=== PATIENT | male | born 1950 | race Caucasian/White ===

== ENCOUNTER → 2017-04-12 | Outpatient (CLI) | payer MEDICARE, MEDICAID ==
[~2017-04-12] MED LIST: ASPI-621 PO; CLON0.1T PO; FINA5TAB4 PO; HYDR-3237 PO; LISI40TA PO; MELA5TAB19 PO; METF500T4 PO; TAMS-11 PO; ZOLP10TA5 PO; vitamin b12 PO
[2017-04-12 11:55] LABS: EPI LOT# 5695218
[2017-04-12 12:04] LABS: HEMATOCRIT 49.2 % (39.2-51.8); HEMOGLOBIN 16.8 g/dL (13.7-18.0); WHITE BLOOD COUNT 6.6 x10^3/uL (3.4-10)
[2017-04-12 12:06] LABS: HCT (PFA) 49.3 % (39.2-51.8); PLATELET (PFA) 125 x10^3/uL (130-400)
[2017-04-12 12:13] LABS: BLOOD UREA NITROGEN 11 mg/dL (7-18)
[2017-04-12 12:16] LABS: ASPARTATE AMINO TRANSFERASE 12 U/L (15-37)
[2017-04-12 13:14] LABS: EPI CARTRIDGE 103 SECONDS (72-193)
== END | disposition home or self-care (01) ==
LOC: STAR 10:38
PROVIDERS: ATTEND Neurological Surgery
DX: Z01.818 Encounter for other preprocedural examination (principal); R94.31 Abnormal electrocardiogram [ECG] [EKG]; G91.2 (Idiopathic) normal pressure hydrocephalus
CPT/HCPCS: 36415; 71020; 80053; 81003; 85014; 85025; 85049; 85576; 85610; 85730; 93005

== ENCOUNTER 2017-04-26 05:38 | Inpatient (IN) | payer MEDICARE, MEDICAID ==
[~2017-04-26] VITALS: Ht 188 cm; Wt 94.0 kg
[2017-04-26] MEDS ORDERED: LACTATED RINGERS 1,000 ML IV SCH (06:03)
[2017-04-26] MEDS ORDERED: BUPIVACAINE/PF 0.5% ONE (06:47)
[2017-04-26] MEDS ORDERED: THROMBIN 5,000 UNIT VIAL TP ONE (06:48)
[2017-04-26] MEDS ORDERED: BACITRACIN 50,000 UNIT ONE (06:48)
[2017-04-26] MEDS ORDERED: BACITRACIN OINT 500U/GM, 15 GM ONE (06:48)
[2017-04-26] MEDS ORDERED: EPINEPHRINE 1 MG/ML, 1ML ONE (06:48)
[2017-04-26] MEDS ORDERED: MIDAZOLAM 1 MG/ML, 2ML ONE (07:03)
[2017-04-26] MEDS ORDERED: FENTANYL PF 250 MCG/5ML ONE ×2 (07:05→08:39)
[2017-04-26] MEDS ORDERED: LABETALOL 5MG/ML, 20ML ONE (07:30)
[2017-04-26] MEDS ORDERED: ESMOLOL 100 MG/10 ML ONE (07:30)
[2017-04-26] MEDS ORDERED: HYDROmorphone 1 MG/ML, 1ML IV PRN (08:30)
[2017-04-26] MEDS ORDERED: HALOPERIDOL 5 MG/ML IV ONE (08:30)
[2017-04-26] MEDS ORDERED: OXYcodone 5 MG/5 ML ORAL.SOL UDC PO PRN (08:30)
[2017-04-26] MEDS ORDERED: FENTANYL PF 100 MCG/2ML IV PRN (08:30)
[2017-04-26] MEDS ORDERED: PROMETHAZINE 25 MG/ML, 1ML IV PRN (08:30)
[2017-04-26] MEDS ORDERED: ALBUTEROL SULFATE 2.5 MG/3 ML NPPB PRN (08:30)
[2017-04-26] MEDS ORDERED: ACETAMINOPHEN 325 MG TABLET PO PRN ×2 (08:30→12:30)
[2017-04-26] MEDS ORDERED: METOPROLOL 1 MG/ML, 5ML IV PRN (08:30)
[2017-04-26] MEDS ORDERED: NITROGLYCERIN 5 MG/ML, 10ML ONE (08:47)
[2017-04-26] MEDS ORDERED: PROPOFOL 10 MG/ML, 20ML ONE ×2 (10:02)
[2017-04-26] MEDS ORDERED: ROCURONIUM 10 MG/ML,10ML ONE (10:02)
[2017-04-26] MEDS ORDERED: DEXAMETHASONE 4 MG/ML, 1ML ONE (10:02)
[2017-04-26] MEDS ORDERED: NEOSTIGMINE 1 MG/ML, 10ML ONE (10:02)
[2017-04-26] MEDS ORDERED: GLYCOPYRROLATE 0.2MG/1ML, 5ML ONE (10:02)
[2017-04-26] MEDS ORDERED: CEFAZOLIN 1,000 MG ONE (10:02)
[2017-04-26] MEDS ORDERED: SUCCINYLCHOLINE 20 MG/ML, 10ML ONE (10:02)
[2017-04-26] MEDS ORDERED: ONDANSETRON 2MG/ML, 2ML ONE (10:02)
[2017-04-26] MEDS ORDERED: FENTANYL PF 100 MCG/2ML ONE (10:36)
[2017-04-26] MEDS ORDERED: OXYcodone 5 MG/5 ML ORAL.SOL UDC ONE (10:36)
[2017-04-26] MEDS ORDERED: hydrALAzine 20 MG/ML, 1ML ONE (10:45)
[2017-04-26] MEDS: hydrALAzine 20 MG/ML, 1ML IV PRN ×2 (11:00→11:18)
[2017-04-26] MEDS ORDERED: MAGNESIUM HYDROXIDE 8%, 30ML UDC PO PRN (12:30)
[2017-04-26] MEDS ORDERED: ACETAMINOPHEN 650 MG SUPP PR PRN ×2 (12:30)
[2017-04-26] MEDS ORDERED: LABETALOL 250 MG in DEXTROSE 5% 200 ML IV PRN (12:30)
[2017-04-26] MEDS ORDERED: NITROPRUSSIDE 50 MG in DEXTROSE 5% 248 ML IV PRN (12:30)
[2017-04-26] MEDS ORDERED: BISACODYL 10 MG SUPP PR PRN (12:30)
[2017-04-26] MEDS ORDERED: NS + 20MEQ KCL 1,000 ML IV SCH (12:30)
[2017-04-26] MEDS ORDERED: HYDROmorphone 2 MG/ML, 1ML IV PRN (12:30)
[2017-04-26] MEDS: ENALAPRILAT 1.25 MG/ML, 2ML IV SCH ×4 (12:30→23:52)
[2017-04-26] MEDS ORDERED: OXYcodone/APAP 5/325MG TABLET PO PRN (12:30)
[2017-04-26 13:04] VITALS: BP 157/82
[2017-04-26] MEDS: CEFAZOLIN PMX 1GM/50ML 50 ML IVPB SCH (16:23)
[2017-04-26] MEDS: POTASSIUM CHLORIDE 20 MEQ in SODIUM CHLORIDE 0.9% 1,000 ML IV SCH (16:56)
[2017-04-26 19:39] VITALS: BP 147/85
[2017-04-26 23:50] VITALS: BP 180/92
[2017-04-27] VITALS (8 sets, daily range): BP systolic 154–190; BP diastolic 61–97
[2017-04-27] MEDS: CEFAZOLIN PMX 1GM/50ML 50 ML IVPB SCH (00:07)
[2017-04-27] MEDS: POTASSIUM CHLORIDE 20 MEQ in SODIUM CHLORIDE 0.9% 1,000 ML IV SCH ×3 (03:06→23:18)
[2017-04-27] MEDS: ENALAPRILAT 1.25 MG/ML, 2ML IV SCH ×5 (04:30→20:30)
[2017-04-27] MEDS ORDERED: MELATONIN 5 MG TABLET PO PRN (09:00)
[2017-04-27] MEDS ORDERED: ZOLPIDEM 10MG TABLET PO PRN (09:00)
[2017-04-27] MEDS: CYANOCOBALAMIN 1,000 MCG TABLET PO SCH (09:45)
[2017-04-27] MEDS: LISINOPRIL 20 MG TABLET PO SCH (09:45)
[2017-04-27] MEDS: FINASTERIDE 5 MG TABLET PO SCH (09:45)
[2017-04-27] MEDS: SENNA/DOCUSATE TABLET PO SCH (09:45)
[2017-04-27] MEDS: metFORMIN 500 MG TABLET PO SCH (17:48)
[2017-04-27] MEDS: TAMSULOSIN 0.4 MG CAP.ER.24H PO SCH (20:17)
[2017-04-27] MEDS: ACETAMINOPHEN 325 MG TABLET PO PRN (20:31)
[2017-04-28] VITALS (9 sets, daily range): BP systolic 169–203; BP diastolic 82–116
[2017-04-28] MEDS: ENALAPRILAT 1.25 MG/ML, 2ML IV SCH ×6 (00:30→21:05)
[2017-04-28] MEDS: ACETAMINOPHEN 325 MG TABLET PO PRN (03:35)
[2017-04-28] MEDS: LISINOPRIL 20 MG TABLET PO SCH (07:35)
[2017-04-28] MEDS: FINASTERIDE 5 MG TABLET PO SCH (07:35)
[2017-04-28] MEDS: CYANOCOBALAMIN 1,000 MCG TABLET PO SCH (07:35)
[2017-04-28] MEDS: SENNA/DOCUSATE TABLET PO SCH (07:35)
[2017-04-28] MEDS: metFORMIN 500 MG TABLET PO SCH ×2 (07:36→16:52)
[2017-04-28] MEDS: POTASSIUM CHLORIDE 20 MEQ in SODIUM CHLORIDE 0.9% 1,000 ML IV SCH ×2 (07:36→19:30)
[2017-04-28] MEDS: AMLODIPINE 5 MG TABLET PO SCH ×2 (10:22→21:05)
[2017-04-28] MEDS: METOPROLOL TARTRATE 25 MG TABLET PO SCH ×2 (10:22→21:05)
[2017-04-28] MEDS: ONDANSETRON 2MG/ML, 2ML IV PRN ×2 (10:56→16:52)
[2017-04-28] MEDS ORDERED: LABETALOL 5MG/ML, 20ML IVPush ONE (11:00)
[2017-04-28] MEDS ORDERED: LABETALOL 5MG/ML, 20ML IVPush PRN (13:00)
[2017-04-28] MEDS: TAMSULOSIN 0.4 MG CAP.ER.24H PO SCH (21:05)
[2017-04-29] MEDS: ENALAPRILAT 1.25 MG/ML, 2ML IV SCH ×5 (00:30→16:30)
[2017-04-29 01:49] VITALS: BP 171/91
[2017-04-29] MEDS: POTASSIUM CHLORIDE 20 MEQ in SODIUM CHLORIDE 0.9% 1,000 ML IV SCH ×2 (05:36→15:42)
[2017-04-29 08:16] VITALS: BP 183/69
[2017-04-29] MEDS: metFORMIN 500 MG TABLET PO SCH ×2 (08:26→17:45)
[2017-04-29] MEDS: SENNA/DOCUSATE TABLET PO SCH (08:26)
[2017-04-29] MEDS: AMLODIPINE 5 MG TABLET PO SCH ×2 (08:27→20:42)
[2017-04-29] MEDS: CYANOCOBALAMIN 1,000 MCG TABLET PO SCH (08:27)
[2017-04-29] MEDS: METOPROLOL TARTRATE 25 MG TABLET PO SCH ×2 (08:27→20:42)
[2017-04-29] MEDS: FINASTERIDE 5 MG TABLET PO SCH (08:27)
[2017-04-29] MEDS: LISINOPRIL 20 MG TABLET PO SCH (08:28)
[2017-04-29 10:33] VITALS: BP 157/92
[2017-04-29 15:00] VITALS: BP 167/73
[2017-04-29] MEDS: TAMSULOSIN 0.4 MG CAP.ER.24H PO SCH (20:42)
[2017-04-29 20:58] VITALS: BP 165/103
[2017-04-30 02:00] VITALS: BP 144/77
[2017-04-30 07:51] VITALS: BP_SYST 153; BP_SYST 171; BP_DIAS 71; BP_DIAS 86
[2017-04-30] MEDS: METOPROLOL TARTRATE 25 MG TABLET PO SCH (08:10)
[2017-04-30] MEDS: LISINOPRIL 20 MG TABLET PO SCH (08:10)
[2017-04-30] MEDS: CYANOCOBALAMIN 1,000 MCG TABLET PO SCH (08:10)
[2017-04-30] MEDS: SENNA/DOCUSATE TABLET PO SCH (08:10)
[2017-04-30] MEDS: metFORMIN 500 MG TABLET PO SCH (08:11)
[2017-04-30] MEDS: AMLODIPINE 5 MG TABLET PO SCH (08:11)
[2017-04-30] MEDS: FINASTERIDE 5 MG TABLET PO SCH (08:11)
[2017-04-30 08:12] VITALS: BP 159/89
[2017-04-30 13:34] VITALS: BP 157/91
== END 2017-04-30 13:38 | disposition home health service (06) | DRG 33 ==
LOC: ORIP 05:38 → 4NOR 11:43
PROVIDERS: ADMIT Neurological Surgery; ATTEND Neurological Surgery
PROC: 0WJG0ZZ Inspection of Peritoneal Cavity, Open Approach (ICD-10-PCS; 2017-04-26)
PROC: 00160J6 Bypass Cerebral Ventricle to Peritoneal Cavity with Synthetic Substitute, Open Approach (ICD-10-PCS; principal; 2017-04-26 07:30)
DX: G91.2 (Idiopathic) normal pressure hydrocephalus (principal); F03.90 Unspecified dementia, unspecified severity, without behavioral disturbance, psychotic disturbance, mood disturbance, and anxiety; R33.9 Retention of urine, unspecified
CPT/HCPCS: 36415; 70450; 82962; 86850; 86900; 93005; J0171; J0690; J1100; J2250; J2405; J2704; J2710; J3010; J3490; 92523-GN; C1757; C1894; J0330; J0360; J7120